=== PATIENT | female | born 1950 | race Caucasian/White ===

== ENCOUNTER 2016-10-09 10:21 | Emergency (ER) | payer OTHER ==
[2016-10-09 10:30] VITALS: RESP 16
[2016-10-09] MEDS ORDERED: NS 1,000 ML IV ONE (10:48)
--- NOTE | 2016-10-09 10:59 | EDPHY ---
H & P Stated Complaint: HEADACHE FOR 4-5 DAYS, HPI/ROS: CHIEF COMPLAINT: Headache HISTORY OF PRESENT ILLNESS: Patient complains of headache on the left frontal region for the past 4 days. This was relatively sudden onset. It is mild to moderate. It comes and goes. It is not currently present. Waxes and wanes and completely resolved at this time. No neck pain or stiffness. No fever or chills. No history of headaches. No trauma. 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 She is only on aspirin, no other anticoagulants. She has no chest pain or shortness of breath. No recent travel or surgery. No other associated complaints or modifying factors. REVIEW OF SYSTEMS: Ten systems reviewed and are negative unless otherwise noted in the HPI PAST MEDICAL HISTORY: Factor 5 SOCIAL HISTORY: Nonsmoker. Lives here in [place] FAMILY HISTORY: Noncontributory EXAMINATION General Appearance: Alert, no distress Head: normocephalic, atraumatic Eyes: Pupils equal and round, no conjunctival pallor or injection ENT, Mouth: Mucous membranes moist Neck: Normal inspection, supple, non-tender Respiratory: Lungs are clear to auscultation Cardiovascular: Regular rate and rhythm Gastrointestinal: Abdomen is soft and nontender Back: non-tender, no bony abnormalities Neurological: GCS 15. Cranial nerves 2-12 grossly intact A&O, nonfocal, normal gait. Strength is symmetric in all 4 limbs. No pronator drift Skin: Warm and dry, no rash Extremities: Nontender, no pedal edema Psychiatric: Mood and affect normal DIFFERENTIAL DIAGNOSES: Including but not limited to CVA, sinus thrombus, subarachnoid hemorrhage, migraine, tension headache, intracranial mass MDM: 10:55 a.m. Left frontal headache that is intermittent over the past 4 days. She is neuro intact. No acute distress. Vital signs stable. She does have a history of factor 5 and no previous history of headaches, thus I have ordered CT scan of the head. Laboratory studies have also been ordered. 11:40 a.m. Notified by radiologist Dr. Zavala. CT scan of the head is unremarkable. We discussed the patient's case in her history. He informed me that the standard of care for her scenario would be an MR venogram. I have ordered this. She is comfortable with this. 12:30 p.m. I have re-evaluated the patient. She is resting comfortably. Still awaiting her MRI. 2:18 p.m. Notified by radiologist Dr. Zavala. MRI reveals no acute findings. I discussed this with the patient she is very relieved. She will be discharged home stable condition. Follow up with primary care physician and neurologist. I do not have any clinical suspicion of subarachnoid hemorrhage or any other significant abnormality. This is in addition to negative MR imaging. She is stable for discharge home and does not want any medications. SUPERVISION: Patient was evaluated in conjunction with the supervising physician. Please see their note for details. Source: Patient, Family Exam Limitations: No limitations - Personal History Current Tetanus Diphtheria and Acellular Pertussis (TDAP): Yes Tetanus Vaccine Date: < 10 YEARS - Medical/Surgical History Hx Asthma: No Hx Chronic Respiratory Disease: No Hx Diabetes: No Hx Cardiac Disease: No Hx Renal Disease: No Hx Cirrhosis: No Hx Alcoholism: No Hx HIV/AIDS: No Hx Splenectomy or Spleen Trauma: No Other PMH: CATARACT SURGERY, RETINAL DETACHMENT, R LEG BLOOD CLOT - Social History Smoking Status: Never smoked Constitutional: Initial Vital Signs Temperature (C) 98.4 F 10/09/16 10:27 Heart Rate 80 10/09/16 10:27 Respiratory Rate 16 10/09/16 10:27 Blood Pressure 128/71 H 10/09/16 10:27 O2 Sat (%) 97 10/09/16 10:27 O2 Delivery Mode Room Air Allergies/Adverse Reactions: No Known Allergies Allergy (Unverified 10/09/16 10:32) Home Medications: Medication Instructions Recorded Aspirin 81mg (*) 10/09/16 Medical Decision Making - Diagnostics Imaging Results: Imaging Impressions Head CT 10/09/16 10:58 Impression: 1. No acute intracranial findings. 2. Diffuse cerebral atrophy with periventricular and subcortical low attenuation consistent with chronic microvascular ischemic gliosis. Findings discussed with Mo Barrientos 10/09/2016 at 11:37. Head MRA 10/09/16 11:37 Impression: 1. Normal MR venography of the brain. Results called to Mo Barrientos PA-C, at 1:45 PM. - Data Points Laboratory Results: Laboratory Results 10/09/16 10:50 10/09/16 10:50 10/09/16 10/09/16 10/09/16 10:50 10:50 10:50 WBC 5.70 10^3/uL 10^3/uL (3.80-9.50) RBC 4.75 10^6/uL 10^6/uL (4.18-5.33) Hgb 15.0 g/dL g/dL (12.6-16.3) Hct 45.3 % % (38.0-47.0) MCV 95.4 fL fL (81.5-99.8) MCH 31.6 pg pg (27.9-34.1) MCHC 33.1 g/dL g/dL (32.4-36.7) RDW 13.1 % % (11.5-15.2) Plt Count 305 10^3/uL 10^3/uL (150-400) MPV 9.8 fL fL (8.7-11.7) Neut % (Auto) 61.3 % % (39.3-74.2) Lymph % (Auto) 30.7 % % (15.0-45.0) Bates % (Auto) 6.1 % % (4.5-13.0) Eos % (Auto) 1.2 % % (0.6-7.6) Baso % (Auto) 0.5 % % (0.3-1.7) Nucleat RBC Rel Count 0.0 % % (0.0-0.2) Absolute Neuts (auto) 3.49 10^3/uL 10^3/uL (1.70-6.50) Absolute Lymphs (auto) 1.75 10^3/uL 10^3/uL (1.00-3.00) Absolute Monos (auto) 0.35 10^3/uL 10^3/uL (0.30-0.80) Absolute Eos (auto) 0.07 10^3/uL 10^3/uL (0.03-0.40) Absolute Basos (auto) 0.03 10^3/uL 10^3/uL (0.02-0.10) Absolute Nucleated RBC 0.00 10^3/uL 10^3/uL (0-0.01) Immature Gran % 0.2 % % (0.0-1.1) Immature Gran # 0.01 10^3/uL 10^3/uL (0.00-0.10) ESR 7 MM/HR MM/HR (0-30) PT 14.0 SEC SEC (12.0-15.0) INR 1.09 (0.83-1.16) APTT 29.1 SEC SEC (23.0-38.0) Sodium 144 mEq/L mEq/L (134-144) Potassium 4.2 mEq/L mEq/L (3.5-5.2) Chloride 107 mEq/L mEq/L (97-110) Carbon Dioxide 23 mEq/l mEq/l (22-31) Anion Gap 14 mEq/L mEq/L (8-16) BUN 19 mg/dL mg/dL (7-23) Creatinine 0.8 mg/dL mg/dL (0.6-1.0) Estimated GFR > 60 Glucose 92 mg/dL mg/dL (70-100) Calcium 9.9 mg/dL mg/dL (8.5-10.4) C-Reactive Protein < 5.0 mg/L mg/L (<10.0) Medications Given: Discontinued Medications Sodium Chloride (Ns) 1,000 mls @ 0 mls/hr IV ONCE ONE PRN Reason: Wide Open Stop: 10/09/16 10:49 Last Admin: 10/09/16 11:23 Dose: 1,000 mls Departure - Departure Disposition: Home, Routine, Self-Care Clinical Impression: Frontal headache Condition: Good Instructions: Acute Headache (ED) Additional Instructions: 1. Follow up with primary care physician and Neurology 2. Return to the ER for sudden change in headache, severe headache, nausea, vomiting, neck pain or stiffness Referrals: Law Ron MD [Primary Care Provider] - As per Instructions Trev Charles MD [Medical Doctor] - As per Instructions
[2016-10-09 11:02] LABS: % IMMATURE GRANULYOCYTES 0.2 % (0.0-1.1); ABSOLUTE IMMATURE GRANULOCYTES 0.01 10^3/uL (0.00-0.10); ADD DIFF? NO; ADD MORPH? NO; ADD SCAN? NO; ATYPICAL LYMPHOCYTE FLAG 20 (0-99); FRAGMENT RBC FLAG 0 (0-99); HEMATOCRIT 45.3 % (38.0-47.0); LEFT SHIFT FLG 0 (0-99); LIPEMIA HEMOLYSIS FLAG 80 (0-99); MEAN CELL HEMOGLOBIN 31.6 pg (27.9-34.1); MEAN CELL HEMOGLOBIN CONCENTR. 33.1 g/dL (32.4-36.7); MEAN CELL VOLUME 95.4 fL (81.5-99.8); MEAN PLATELET VOLUME 9.8 fL (8.7-11.7); PLATELET CLUMPS FLAG 0 (0-99); PLATELET COUNT 305 10^3/uL (150-400); RED BLOOD CELL COUNT 4.75 10^6/uL (4.18-5.33); RED CELL DISTRIBUTION WIDTH 13.1 % (11.5-15.2)
[2016-10-09 11:19] LABS: SEDIMENTATION RATE 7 MM/HR (0-30)
[2016-10-09 11:31] LABS: ANION GAP 14 mEq/L (8-16); C-REACTIVE PROTEIN < 5.0 mg/L (<10.0); CALCIUM 9.9 mg/dL (8.5-10.4); CARBON DIOXIDE 23 mEq/l (22-31); CHLORIDE 107 mEq/L (97-110); CREATININE 0.8 mg/dL (0.6-1.0); GLOMERULAR FILTRATION RATE > 60; GLUCOSE 92 mg/dL (70-100); POTASSIUM 4.2 mEq/L (3.5-5.2); SODIUM 144 mEq/L (134-144)
[2016-10-09 11:56] LABS: INR 1.09 (0.83-1.16)
[2016-10-09 11:57] LABS: APTT 29.1 SEC (23.0-38.0)
[2016-10-09 13:44] VITALS: BP 122/80; PULSE 62; O2SAT 99
[2016-10-09 14:39] VITALS: TEMP 96.8
== END 2016-10-09 14:42 | disposition home or self-care (01) ==
DX: R51 Headache (principal)

== ENCOUNTER → 2017-01-16 | Outpatient (CLI) | payer OTHER | LOC: FIMAGING 15:39 | PROVIDERS: ATTEND Internal Medicine | DX: Z12.31 Encounter for screening mammogram for malignant neoplasm of breast (principal) | CPT/HCPCS: G0202 ==

== ENCOUNTER → 2017-04-01 | Outpatient (CLI) | payer OTHER | LOC: FIMAGING 13:21 | PROVIDERS: ATTEND Internal Medicine | DX: Z13.820 Encounter for screening for osteoporosis (principal); M81.0 Age-related osteoporosis without current pathological fracture ==

== ENCOUNTER → 2018-01-17 | Outpatient (CLI) | payer OTHER | LOC: FIMAGING 13:55 | PROVIDERS: ATTEND Internal Medicine | DX: Z12.31 Encounter for screening mammogram for malignant neoplasm of breast (principal) ==

== ENCOUNTER → 2018-03-26 | Outpatient (CLI) | payer OTHER | LOC: FLAB 10:38 | PROVIDERS: ATTEND Internal Medicine | DX: R07.9 Chest pain, unspecified (principal); R53.83 Other fatigue ==

== ENCOUNTER → 2018-04-16 | Outpatient (CLI) | payer OTHER ==
[~2018-04-16] MED LIST: IOHEXOL 300 mgI/ML (OMNIPAQUE) 150 ML BTL IV ONE
== END ==
LOC: FIMAGING 09:30
PROVIDERS: ATTEND Internal Medicine
DX: R10.11 Right upper quadrant pain (principal)
CPT/HCPCS: 74177; Q9967